=== PATIENT | female | born 1985 | race Caucasian/White ===

== ENCOUNTER → 2017-09-21 | Outpatient (CLI) | payer OTHER ==
[~2017-09-21] MED LIST: AMOXIL500 MG PO; CIPROFLOXACIN500 MG PO; CLARITIN10 MG PO; KEFLEX500 MG PO; MACROBID100 M1 PO; MEDROL DOSEPAK4 MG PO; MIDRIN (DURADR1 CAP PO; PEPCID20 MG PO; PNV PRENATAL HE1 TAB PO; Phenergan25 MG PO; TRAMADOL HCL50 MG PO; ZITHROMAX Z PA250 MG PO
[2017-09-21 10:28] LABS: ALBUMIN 3.3 gm/dl (3.1-4.5); ALKALINE PHOSPHATASE 85 U/L (45-117); BUN 10 mg/dl (7-24); CHLORIDE 103 mmol/L (98-107); CHOLESTEROL 116 mg/dL (<200); CREATININE 0.67 mg/dL (0.55-1.02); HDL CHOLESTEROL 32 mg/dl (40-60); LDL CHOLESTEROL 65 mg/dL (9-159); POTASSIUM 4.1 mmol/L (3.5-5.1); SGOT/AST 5 IU/L (3-35); SGPT/ALT 18 U/L (12-78); SODIUM 138 mmol/L (136-145); TOTAL PROTEIN 7.7 gm/dL (6.4-8.2); TRIGLYCERIDES 97 mg/dl (<150); VLDL CHOLESTEROL 19 mg/dL (6-40)
== END | disposition home or self-care (01) ==
LOC: LAB 08:55
DX: E11.8 Type 2 diabetes mellitus with unspecified complications (principal)

== ENCOUNTER → 2018-12-18 | Day surgery (SDC) | payer OTHER ==
[~2018-12-18] VITALS: Ht 162.5 cm; Wt 154.2 kg
[~2018-12-18] MED LIST changes: +COZAAR100 MG PO; +GLUCOPHAGE500 M1 PO; +OZEMPIC1 MG/0.75 SQ; +TRESIBA100 UNIT/1 SQ
--- NOTE | ~2018-12-18 | PROC NOTE ---
[place], [place] PROCEDURE NOTE NAME: ERIN BARROSO UNIT #: [id number] ROOM: DOCTOR: PATRICE WILLIAM MD BIRTHDATE: [birth year] DOS: 12/18/2018 PREOPERATIVE DIAGNOSIS: Lower gastrointestinal bleed. POSTOPERATIVE DIAGNOSIS: Internal hemorrhoids. PROCEDURE: Colonoscopy. ENDOSCOPIST: Patrice William MD AC/DC REWINDER: EDIN. ANESTHESIA: MAC. INDICATIONS: This is a 33-year-old lady with a history of lower GI bleed who is here for a colonoscopy. The procedure and its complications were explained to the patient in detail preoperatively. Complications that were discussed included but were not limited to, bleeding, colon perforation, and missed lesions. She agreed to proceed. DESCRIPTION OF PROCEDURE: After identifying the patient, the patient was brought to the operating suite and laid in the left lateral position. After IV sedation was administered by the Anesthesia Team, a timeout procedure was called and a digital rectal exam was performed. Old blood was seen on the examining finger. An adult colonoscope was now introduced into the anal canal and advanced sequentially into the rectum, sigmoid colon, descending colon, transverse colon and ascending colon up to the cecum. The prep was found to be suboptimal in some areas and saline was used for irrigation in order to better visualize the entirety of the colon. Upon reaching the cecum, the scope was withdrawn. Total withdrawal time was approximately 6 minutes and 30 seconds. The entire colon was visualized and there were no areas of bleeding or lesions that could explain the bleeding was visualized. There were internal hemorrhoids that showed recent signs of bleeding, but apart from that there were no other lesions that could be identified. The scope was then withdrawn and the patient was brought back to the recovery room in stable fashion. Based on these findings, the patient is recommended to have another colonoscopy in 10 years or sooner if she had new symptoms. The findings of bleeding, internal hemorrhoids can be addressed with Doppler guided hemorrhoid artery ligation at a later date. These findings were discussed with the patient's family in the recovery room. [place], [place] PROCEDURE NOTE NAME: ERIN BARROSO Gilda UNIT #: [id number] ROOM: DOCTOR: PATRICE WILLIAM MD BIRTHDATE: [birth year] Patrice William MD CM:RASHID:PROCEDURE NOTE [id number] PATRICE WILLIAM MD
[2018-12-18 07:30] VITALS: BP 123/84
[2018-12-18 08:50] VITALS: BP 105/48
[2018-12-18 09:05] VITALS: BP 121/63
[2018-12-18 09:20] VITALS: BP 120/60
== END | disposition home or self-care (01) ==
LOC: SDC 12-12 08:00
DX: K64.8 Other hemorrhoids (principal); K92.2 Gastrointestinal hemorrhage, unspecified; I25.10 Atherosclerotic heart disease of native coronary artery without angina pectoris; I10 Essential (primary) hypertension; J45.909 Unspecified asthma, uncomplicated; E11.9 Type 2 diabetes mellitus without complications; F32.9 Major depressive disorder, single episode, unspecified; E78.5 Hyperlipidemia, unspecified; E66.01 Morbid (severe) obesity due to excess calories; Z68.43 Body mass index [BMI] 50.0-59.9, adult; Z98.890 Other specified postprocedural states; Z88.8 Allergy status to other drugs, medicaments and biological substances; Z79.899 Other long term (current) drug therapy; Z83.3 Family history of diabetes mellitus; Z80.9 Family history of malignant neoplasm, unspecified; Z81.8 Family history of other mental and behavioral disorders

== ENCOUNTER 2023-04-06 21:56 | Emergency (ER) | payer MEDICAID ==
[~2023-04-06] VITALS: Ht 162.5 cm; Wt 142.9 kg
[2023-04-06 22:26] VITALS: BP 129/80
[2023-04-06] MEDS ORDERED: NAPROSYN500 MG PO (22:39)
== END 2023-04-06 23:07 | disposition home or self-care (01) ==
LOC: ED 21:56
DX: M25.562 Pain in left knee (principal); M25.561 Pain in right knee; E11.9 Type 2 diabetes mellitus without complications; I10 Essential (primary) hypertension; J45.909 Unspecified asthma, uncomplicated; I25.10 Atherosclerotic heart disease of native coronary artery without angina pectoris; F31.9 Bipolar disorder, unspecified; D64.9 Anemia, unspecified; Z88.8 Allergy status to other drugs, medicaments and biological substances; Z90.49 Acquired absence of other specified parts of digestive tract; Z98.890 Other specified postprocedural states